=== PATIENT | female | born 1980 | race Caucasian/White ===

== ENCOUNTER 2020-07-10 12:33 | Day surgery (SDC) | payer OTHER ==
[2020-07-10] MEDS ORDERED: Xylocaine-Mpf 2% 5 Ml Vial IJ ONE (12:34)
[2020-07-10] MEDS ORDERED: Decadron 4 MG INJ IV ONE (12:34)
[2020-07-10] MEDS ORDERED: DIPRIVAN 200 MG/20 ML IV ONE (14:20)
[2020-07-10] MEDS ORDERED: Ketamine HCl 50 MG/ML ONE (14:20)
[2020-07-10] MEDS ORDERED: Lactated Ringers 1,000 ML IV ONE (15:16)
--- NOTE | 2020-07-10 15:22 | XRAY ---
37 seconds fluoroscopy time in surgery for left C3-C6 MBB.
--- NOTE | 2020-07-10 15:24 | XRAY ---
Indication: Left C3-C6 MBB. Intraoperative fluoroscopy was provided for 37 seconds. 2 digital spot images submitted for interpretation demonstrates posterior needle tips projecting over the expected the left C3-C6 nerve roots. Correlate with intraoperative findings/report.
== END 2020-07-10 14:52 | disposition home or self-care (01) ==
LOC: SDC-PAIN 12:33
PROVIDERS: ATTEND Psychiatry & Neurology Pain Medicine
DX: M47.812 Spondylosis without myelopathy or radiculopathy, cervical region (principal); I10 Essential (primary) hypertension; M79.7 Fibromyalgia; F41.8 Other specified anxiety disorders; Z79.899 Other long term (current) drug therapy
CPT/HCPCS: 20610; 72020; 77002; 84703; J1100; J2704

== ENCOUNTER 2020-08-14 12:08 | Day surgery (SDC) | payer OTHER ==
[2020-08-14] MEDS ORDERED: BUPIVACAINE 0.5% VIAL IJ ONE (12:09)
[2020-08-14] MEDS ORDERED: Decadron 4 MG INJ IV ONE (12:09)
[2020-08-14] MEDS ORDERED: DIPRIVAN 200 MG/20 ML IV ONE (12:54)
[2020-08-14] MEDS ORDERED: Ketamine HCl 50 MG/ML ONE (12:54)
[2020-08-14] MEDS ORDERED: MORPHINE SULFATE 10 MG/ML ONE (13:24)
--- NOTE | 2020-08-14 15:06 | XRAY ---
Indication: Left C2-C5 MBB. Intraoperative fluoroscopy was provided for 27 seconds. 2 digital spot images submitted for interpretation demonstrates posterior needle tips projecting over the expected left C2-C5 nerve roots. Correlate with intraoperative findings/report.
[2020-08-14] MEDS ORDERED: Lactated Ringers 1,000 ML IV ONE (16:06)
--- NOTE | 2020-08-14 16:58 | XRAY ---
27 seconds fluoroscopy time in surgery for left C2-C4 MBB.
== END 2020-08-14 13:41 | disposition home or self-care (01) ==
LOC: SDC-PAIN 12:08
PROVIDERS: ATTEND Psychiatry & Neurology Pain Medicine
DX: M47.812 Spondylosis without myelopathy or radiculopathy, cervical region (principal); I10 Essential (primary) hypertension; M79.7 Fibromyalgia; Z79.899 Other long term (current) drug therapy
CPT/HCPCS: 64491; 64492; 72020; 77002; 84703; J1100; J2270; J2704

== ENCOUNTER 2020-10-16 09:14 | Day surgery (SDC) | payer OTHER ==
[2020-10-16] MEDS ORDERED: BUPIVACAINE 0.5% VIAL IJ ONE (09:15)
[2020-10-16] MEDS ORDERED: Decadron 4 MG INJ IV ONE (09:15)
[2020-10-16] MEDS ORDERED: Xylocaine 1% Vial 30 ML PF IJ ONE (09:15)
[2020-10-16] MEDS ORDERED: Lactated Ringers 1,000 ML IV ONE (11:02)
[2020-10-16] MEDS ORDERED: DIPRIVAN 200 MG/20 ML IV ONE ×2 (12:08→12:21)
[2020-10-16] MEDS ORDERED: Ketamine HCl 50 MG/ML ONE (12:08)
--- NOTE | 2020-10-16 12:48 | XRAY ---
Indication: Left C2-C5 RFA. Intraoperative fluoroscopy provided for 49 seconds. 2 digital spot images submitted for interpretation demonstrate posterior needle tips projecting over the expected left C2-C5 nerve roots. Correlate with intraoperative findings/report.
--- NOTE | 2020-10-16 13:18 | XRAY ---
49 seconds fluoroscopy time in surgery for left C2-C5 RFA.
== END 2020-10-16 12:50 | disposition home or self-care (01) ==
LOC: SDC-PAIN 09:14
PROVIDERS: ATTEND Psychiatry & Neurology Pain Medicine
DX: M47.812 Spondylosis without myelopathy or radiculopathy, cervical region (principal); I10 Essential (primary) hypertension; M79.7 Fibromyalgia; F32.9 Major depressive disorder, single episode, unspecified; G43.909 Migraine, unspecified, not intractable, without status migrainosus
CPT/HCPCS: 64633; 64634; 72040; 77002; 84703; J1100; J2001; J2704

== ENCOUNTER 2021-07-30 10:53 | Day surgery (SDC) | payer OTHER ==
[2021-07-30] MEDS ORDERED: Decadron 4 MG INJ IV ONE (10:54)
[2021-07-30] MEDS ORDERED: LIDOCAINE HCL 2% 100 MG/5 ML IJ ONE (10:54)
[2021-07-30] MEDS ORDERED: DIPRIVAN 200 MG/20 ML IV ONE (13:05)
[2021-07-30] MEDS ORDERED: Ketamine HCl 50 MG/ML ONE (13:07)
[2021-07-30] MEDS ORDERED: TORAdol 30 mg Injection ONE (13:26)
[2021-07-30] MEDS ORDERED: Lactated Ringers 1,000 ML IV ONE (13:26)
--- NOTE | 2021-07-30 14:20 | XRAY ---
Indication: Right C2-C5 MBB. Intraoperative fluoroscopy provided for 26 seconds. 2 digital spot image submitted for interpretation demonstrates posterior needle tips projecting over the expected right C2-C5 nerve roots. Correlate with intraoperative findings/report.
--- NOTE | 2021-07-30 14:20 | XRAY ---
26 seconds fluoroscopy time in surgery for right C2-C5 MBB.
== END 2021-07-30 13:20 | disposition home or self-care (01) ==
LOC: SDC-PAIN 10:53
PROVIDERS: ATTEND Psychiatry & Neurology Pain Medicine
DX: M47.812 Spondylosis without myelopathy or radiculopathy, cervical region (principal); I10 Essential (primary) hypertension; F32.9 Major depressive disorder, single episode, unspecified; Z79.899 Other long term (current) drug therapy
CPT/HCPCS: 64490; 64491; 64492; 72040; 77002; 84703; J1100; J1885; J2704

== ENCOUNTER 2021-12-24 09:43 | Day surgery (SDC) | payer OTHER ==
[2021-12-24] MEDS ORDERED: BUPIVACAINE 0.5% VIAL IJ ONE (09:44)
[2021-12-24] MEDS ORDERED: Decadron 4 MG INJ IV ONE (09:44)
[2021-12-24] MEDS ORDERED: Lactated Ringers 1,000 ML IV ONE (12:10)
[2021-12-24] MEDS ORDERED: DIPRIVAN 200 MG/20 ML IV ONE (12:16)
--- NOTE | 2021-12-24 13:48 | XRAY ---
Indication: Right C2-C5 MBB. Intraoperative fluoroscopy provided for 27 seconds. 2 digital spot image submitted for interpretation demonstrates posterior needle tips projecting over the expected right C2-C5 nerve roots. Correlate with intraoperative findings/report.
--- NOTE | 2021-12-24 14:30 | XRAY ---
27 seconds fluoroscopy time in surgery for right C2-C5 MBB.
== END 2021-12-24 12:40 | disposition home or self-care (01) ==
LOC: SDC-PAIN 09:43
PROVIDERS: ATTEND Psychiatry & Neurology Pain Medicine
DX: M47.812 Spondylosis without myelopathy or radiculopathy, cervical region (principal); I10 Essential (primary) hypertension; Z79.899 Other long term (current) drug therapy
CPT/HCPCS: 64490; 64491; 64492; 72040; 77002; 84703; J1100; J2704

== ENCOUNTER 2022-02-11 13:49 | Day surgery (SDC) | payer OTHER ==
[2022-02-11] MEDS ORDERED: Decadron 4 MG INJ IV ONE (13:50)
[2022-02-11] MEDS ORDERED: XYLOCAINE-MPF 1% 5ML SDV IJ ONE (13:50)
[2022-02-11] MEDS ORDERED: Marcaine Mpf 0.5% Vial 30 Ml IJ ONE (13:50)
[2022-02-11] MEDS ORDERED: DIPRIVAN 200 MG/20 ML IV ONE (17:19)
[2022-02-11] MEDS ORDERED: Lactated Ringers 1,000 ML IV ONE (19:29)
--- NOTE | 2022-02-11 21:29 | XRAY ---
Indication: Left C2-C5 RFA. Intraoperative fluoroscopy provided for 28 seconds. 2 digital spot image submitted for interpretation demonstrates posterior needle tips projecting over the expected left C2-C5 nerve roots. Correlate with intraoperative findings/report.
--- NOTE | 2022-02-12 09:13 | XRAY ---
28 seconds of fluoroscopy was used in surgery for a left C2-C5 RFA.
== END 2022-02-11 17:49 | disposition home or self-care (01) ==
LOC: SDC-PAIN 13:49
PROVIDERS: ATTEND Psychiatry & Neurology Pain Medicine
DX: M47.812 Spondylosis without myelopathy or radiculopathy, cervical region (principal); Z79.899 Other long term (current) drug therapy
CPT/HCPCS: 01939; 64633; 64634; 72040; 77002; 81025; J1100; J2704

== ENCOUNTER 2022-08-13 15:14 | Day surgery (SDC) | payer OTHER ==
[2022-08-13] MEDS ORDERED: Depo-Medrol 40 MG/ML IM ONE (15:15)
[2022-08-13] MEDS ORDERED: LIDOCAINE HCL 1% 50 MG/5 ML VL PF IJ ONE (15:15)
[2022-08-13] MEDS ORDERED: BUPIVACAINE 0.5% VIAL IJ ONE (15:15)
--- NOTE | 2022-08-13 19:41 | XRAY ---
Indication: Bilateral greater trochanter bursa injection. Intraoperative fluoroscopy provided for 22 seconds. 3 digital spot image submitted for interpretation demonstrates needle tip projecting lateral to the left and right greater trochanters. Small amount of contrast injected for both needle tip placement. Correlate with intraoperative findings/report.
--- NOTE | 2022-08-14 12:35 | XRAY ---
22 seconds fluoroscopy timein surgery for injections of the greater trochanters of both hips.
== END 2022-08-13 17:45 | disposition home or self-care (01) ==
LOC: SDC-PAIN 15:14
PROVIDERS: ATTEND Psychiatry & Neurology Pain Medicine
DX: M70.62 Trochanteric bursitis, left hip (principal); M70.61 Trochanteric bursitis, right hip; Z79.899 Other long term (current) drug therapy
CPT/HCPCS: 20610; 73521; 77002; 81025; J1030; J2001; Q9966

== ENCOUNTER 2022-09-02 11:15 | Day surgery (SDC) | payer OTHER ==
[2022-09-02] MEDS ORDERED: Depo-Medrol 40 MG/ML IM ONE (11:16)
[2022-09-02] MEDS ORDERED: LIDOCAINE HCL 2% 100 MG/5 ML IJ ONE (11:16)
[2022-09-02] MEDS ORDERED: DIPRIVAN 200 MG/20 ML IV ONE (13:22)
--- NOTE | 2022-09-02 14:36 | XRAY ---
Indication: Bilateral L4-S1 MBB. Intraoperative fluoroscopy provided for 11 seconds. Single digital spot image submitted for interpretation demonstrates posterior needle tips projecting over the expected left and right L4-S1 nerve roots. Correlate with intraoperative findings/report.
--- NOTE | 2022-09-02 14:57 | XRAY ---
11 seconds of fluoroscopy was used in surgery for a bilateral L4-S1 MBB.
[2022-09-02] MEDS ORDERED: Lactated Ringers 1,000 ML IV ONE (15:40)
== END 2022-09-02 13:50 | disposition home or self-care (01) ==
LOC: SDC-PAIN 11:15
PROVIDERS: ATTEND Psychiatry & Neurology Pain Medicine
DX: M47.816 Spondylosis without myelopathy or radiculopathy, lumbar region (principal); Z79.899 Other long term (current) drug therapy
CPT/HCPCS: 64493; 64494; 72020; 77002; 81025; J1030; J2704

== ENCOUNTER 2022-09-30 12:38 | Day surgery (SDC) | payer OTHER ==
[2022-09-30] MEDS ORDERED: BUPIVACAINE 0.5% VIAL IJ ONE (12:39)
[2022-09-30] MEDS ORDERED: Depo-Medrol 40 MG/ML IM ONE (12:39)
[2022-09-30] MEDS ORDERED: DIPRIVAN 200 MG/20 ML IV ONE (13:51)
--- NOTE | 2022-09-30 16:42 | XRAY ---
11 seconds of fluoroscopy was used in surgery for a bilateral L4-S1 MBB.
[2022-09-30] MEDS ORDERED: Lactated Ringers 1,000 ML IV ONE (17:31)
== END 2022-09-30 14:30 | disposition home or self-care (01) ==
LOC: SDC-PAIN 12:38
PROVIDERS: ATTEND Psychiatry & Neurology Pain Medicine
DX: M47.816 Spondylosis without myelopathy or radiculopathy, lumbar region (principal); Z79.899 Other long term (current) drug therapy
CPT/HCPCS: 64493; 64494; 72020; 77002; 81025; J1030; J2704

== ENCOUNTER 2023-01-20 12:55 | Day surgery (SDC) | payer OTHER ==
[2023-01-20] MEDS ORDERED: LIDOCAINE HCL 1% 50 MG/5 ML VL PF IJ ONE (12:56)
[2023-01-20] MEDS ORDERED: BUPIVACAINE 0.5% VIAL IJ ONE (12:56)
[2023-01-20] MEDS ORDERED: Decadron 4 MG INJ IV ONE (12:56)
[2023-01-20 14:03] LABS: HCG URINE TEST NEGATIVE (NEGATIVE)
[2023-01-20] MEDS ORDERED: DIPRIVAN 200 MG/20 ML IV ONE (14:53)
[2023-01-20] MEDS ORDERED: Lactated Ringers 1,000 ML IV ONE (15:24)
--- NOTE | 2023-01-20 16:40 | XRAY ---
Indication: Left C2-C5 RFA. Intraoperative fluoroscopy provided for 22 seconds. 2 digital spot image submitted for interpretation demonstrates posterior needle tips projecting over the expected left C2-C5 nerve roots. Correlate with intraoperative findings/report. Incidental lower cervical fusion hardware.
--- NOTE | 2023-01-20 16:44 | XRAY ---
22 seconds of fluoroscopy was used in surgery for a left C2-C5 RFA.
== END 2023-01-20 15:30 | disposition home or self-care (01) ==
LOC: SDC-PAIN 12:55
PROVIDERS: ATTEND Psychiatry & Neurology Pain Medicine
DX: M47.812 Spondylosis without myelopathy or radiculopathy, cervical region (principal); Z79.899 Other long term (current) drug therapy
CPT/HCPCS: 64633; 64634; 72040; 77002; 81025; J1100; J2001; J2704

== ENCOUNTER 2023-02-03 13:57 | Day surgery (SDC) | payer OTHER ==
[2023-02-03] MEDS ORDERED: BUPIVACAINE 0.5% VIAL IJ ONE (13:58)
[2023-02-03] MEDS ORDERED: LIDOCAINE HCL 1% 50 MG/5 ML VL PF IJ ONE (13:58)
[2023-02-03] MEDS ORDERED: Decadron 4 MG INJ IV ONE (13:58)
[2023-02-03 14:30] LABS: HCG URINE TEST NEGATIVE (NEGATIVE)
[2023-02-03] MEDS ORDERED: DIPRIVAN 200 MG/20 ML IV ONE (15:10)
[2023-02-03] MEDS ORDERED: Lactated Ringers 1,000 ML IV ONE (16:08)
--- NOTE | 2023-02-03 19:10 | XRAY ---
Indication: Right C2-C5 RFA. Intraoperative fluoroscopy provided for 20 seconds. 3 digital spot image submitted for interpretation demonstrates posterior needle tips projecting over the expected right C2-C5 nerve roots. Correlate with intraoperative findings/report. Incidental lower cervical fusion hardware.
--- NOTE | 2023-02-03 19:27 | XRAY ---
25 seconds of fluoroscopy was used in surgery for a right C2-C5 RFA.
== END 2023-02-03 15:45 | disposition home or self-care (01) ==
LOC: SDC-PAIN 13:57
PROVIDERS: ATTEND Psychiatry & Neurology Pain Medicine
DX: M47.812 Spondylosis without myelopathy or radiculopathy, cervical region (principal); Z79.899 Other long term (current) drug therapy
CPT/HCPCS: 64633; 64634; 72040; 77002; 81025; J1100; J2001; J2704

== ENCOUNTER 2023-10-07 11:34 | Day surgery (SDC) | payer OTHER ==
[2023-10-07] MEDS ORDERED: BUPIVACAINE 0.5% VIAL IJ ONE (11:35)
[2023-10-07] MEDS ORDERED: Depo-Medrol 40 MG/ML IM ONE (11:35)
[2023-10-07 11:46] LABS: HCG URINE TEST NEGATIVE (NEGATIVE)
[2023-10-07] MEDS ORDERED: DIPRIVAN 200 MG/20 ML IV ONE ×2 (13:03→13:08)
[2023-10-07] MEDS ORDERED: Lactated Ringers 1,000 ML IV ONE (14:34)
--- NOTE | 2023-10-07 14:52 | XRAY ---
Indication: Left shoulder injection. Intraoperative fluoroscopy provided for 8 seconds. Single digital spot image submitted for interpretation demonstrates needle tip projecting over the left glenohumeral joint superiorly. Small amount of contrast injected for needle tip placement. Correlate with intraoperative findings/report.
--- NOTE | 2023-10-07 15:11 | XRAY ---
8 seconds of fluoroscopy was used in surgery for a left intra-articular shoulder injection.
== END 2023-10-07 13:40 | disposition home or self-care (01) ==
LOC: SDC-PAIN 11:34
PROVIDERS: ATTEND Psychiatry & Neurology Pain Medicine
DX: M19.012 Primary osteoarthritis, left shoulder (principal)
CPT/HCPCS: 20610; 73030; 77002; 81025; J1030; J2704; Q9966